=== PATIENT | male | born 1990 | race Caucasian/White ===

== ENCOUNTER 2024-02-22 17:18 | Emergency (ER) | payer OTHER ==
[2024-02-22 17:29] VITALS: RESP 20
[2024-02-22] MEDS: KETOROLAC 15 MG/ML 1 ML VIAL IM STA (18:28)
--- NOTE | 2024-02-22 19:00 | XR ---
EXAMINATION TYPE: XR shoulder complete RT DATE OF EXAM: 02/22/2024 COMPARISON: NONE HISTORY: Pain TECHNIQUE: Right Shoulder examined in 3 projections. FINDINGS: The humeral head articulates with the glenoid. The acromio-clavicular junction is hypertrophied with inferior and superior spurring. No acute fractures or dislocations are evident. A follow up study can be performed 7-10 days from acute trauma for continued pain. MRI can be perfor med if soft tissue evaluation would be of benefit. IMPRESSION: 1. No acute osseous shoulder abnormality. 2. Degenerative hypertrophy at the acromioclavicular junction.
--- NOTE | 2024-02-22 19:08 | XR ---
EXAMINATION TYPE: XR clavicle RT DATE OF EXAM: 02/22/2024 COMPARISON: Right shoulder images HISTORY: Pain, injury TECHNIQUE: 2 view right clavicle FINDINGS: On the 15 degree in the clavicle tiny avulsion at the acromion is identified. Additional fr actures however are not identified. The acromioclavicular spacing appears preserved. Clinical conside ration for separation should be considered. No additional fractures evident. The clavicle appears intact. IMPRESSION: 1. Tiny avulsion from the superior portion of the acromion adjacent to the acromioclavicular junctio n is present.
[2024-02-22] MEDS: HYDROcodone/APAP 7.5-325MG 1 EACH TAB PO ONE (19:58)
--- NOTE | 2024-02-22 20:05 | ED ---
General Adult HPI - General Chief complaint: Extremity Injury, Upper Stated complaint: R shoulder injury Time Seen by Provider: 02/22/24 17:35 Source: patient Mode of arrival: ambulatory Limitations: no limitations - History of Present Illness Initial comments: 33-year-old male with chief complaint of right shoulder pain. Patient was playing beach volleyball when he went for a dive and landed on the right shoulder. He is having pain mainly to the superior portion. Very limited range of motion secondary to pain. No numbness or tingling. Does have history of previous fracture of the clavicle. - Related Data Previous Rx's Medication Instructions Recorded Ibuprofen [Motrin] 600 mg PO Q6HR PRN #30 tab 02/22/24 Allergies Allergy/AdvReac Type Severity Reaction Status Date / Time nitroglycerin AdvReac Unknown Verified 02/22/24 17:30 Review of Systems ROS Statement: Those systems with pertinent positive or pertinent negative responses have been documented in the HPI. ROS Other: All systems not noted in ROS Statement are negative. Past Medical History Past Medical History: Hypertension Additional Past Medical History / Comment(s): pancreatitis Past Surgical History: Appendectomy, Hernia Repair Smoking Status: Current every day smoker Past Alcohol Use History: Abuse General Exam Limitations: no limitations General appearance: alert, in no apparent distress Head exam: Present: atraumatic, normocephalic, normal inspection Eye exam: Present: normal appearance, EOMI Neck exam: Present: normal inspection. Absent: meningismus Respiratory exam: Absent: respiratory distress Cardiovascular Exam: Present: regular rate Right Shoulder Exam: Present: normal inspection, tenderness. Absent: full ROM, deformity Vascular: Absent: vascular compromise Neurological exam: Present: alert, oriented X3 Psychiatric exam: Present: normal affect, normal mood Skin exam: Present: warm, dry Course Vital Signs 02/22/24 02/22/24 17:27 20:30 Temperature 97.6 F 97.9 F Pulse Rate 100 98 Respiratory 20 20 Rate Blood Pressure 137/99 130/91 O2 Sat by Pulse 97 98 Oximetry Medical Decision Making - Medical Decision Making Was pt. sent in by a medical professional or institution (, PA, CONSTRUCTION MATERIALS TESTER, urgent care, hospital, or assisted...) When possible be specific @ -No Did you speak to anyone other than the patient for history (EMS, parent, family, police, friend...)? What history was obtained from this source @ -No Did you review nursing and triage notes (agree or disagree)? Why? @ -I reviewed and agree with nursing and triage notes Were old charts reviewed (outside hosp., previous admission, EMS record, old EKG, old radiological studies, urgent care reports/EKG's, assisted records)? Report findings @ -No old charts were reviewed Differential Diagnosis (chest pain, altered mental status, abdominal pain women, abdominal pain men, vaginal bleeding, weakness, fever, dyspnea, syncope, headache, dizziness, GI bleed, back pain, seizure, CVA, palpatations, mental health, musculoskeletal)? @ -Differential Musculoskeletal Muscular strain, contusion, ligament sprain, fracture, arthritis, septic arthritis, bursitis, cellulitis, muscle spasm, nerve compression, DVT, arterial occlusion, herpes zoster, electrolyte abnormality, tumor.... This is not meant to be in all inclusive list EKG interpreted by me (3pts min.). @ -As above X-rays interpreted by me (1pt min.). @ -Shoulder x-ray shows no acute osseous shoulder abnormality. Degenerative hypertrophy at the AC junction Clavicle x-ray shows tiny avulsion from the superior portion of the acromion adjacent to the AC junction is present CT interpreted by me (1pt min.). @ -None done U/S interpreted by me (1pt. min.). @ -None done What testing was considered but not performed or refused? (CT, X-rays, U/S, labs)? Why? @ -None What meds were considered but not given or refused? Why? @ -None Did you discuss the management of the patient with other professionals (professionals i.e. , PA, CONSTRUCTION MATERIALS TESTER, lab, RT, psych nurse, oncology social worker, clinical quality assurance specialist, teacher, sheriffs officer, catalytic case operator)? Give summary @ -No Was smoking cessation discussed for >3mins.? @ -No Was critical care preformed (if so, how long)? @ -No Were there social determinants of health that impacted care today? How? (Homelessness, low income, unemployed, alcoholism, drug addiction, transportation, low edu. Level, literacy, decrease access to med. care, [facility], rehab)? @ -No Was there de-escalation of care discussed even if they declined (Discuss DNR or withdrawal of care, Hospice)? DNR status @ -No What co-morbidities impacted this encounter? (DM, HTN, Smoking, COPD, CAD, Cancer, CVA, ARF, Chemo, Hep., AIDS, mental health diagnosis, sleep apnea, morbid obesity)? @ -None Was patient admitted / discharged? Hospital course, mention meds given and route, prescriptions, significant lab abnormalities, going to OR and other pertinent info. @ -33-year-old male presenting with chief complaint of right shoulder pain after an injury today. Neurovascularly intact. X-ray shows tiny avulsion fracture of the acromion. Patient is educated on today's findings. He is provided with a shoulder sling. He was given Toradol and [place] for pain. Initially he was ordered a Tylenol 3 starter pack, however I was not made aware that the patient is from [place]. Prescription for ibuprofen sent to the pharmacy. Discharged home. Follow-up with PCP. Report back to ER with any new or worsening symptoms. Discussed return parameters and answered all questions. Patient conveyed verbal understanding and agreed to the plan. I discussed this case in detail with my attending Dr. Marks Undiagnosed new problem with uncertain prognosis? @ -No Drug Therapy requiring intensive monitoring for toxicity (Heparin, Nitro, Insulin, Cardizem)? @ -No Were any procedures done? @ -No Diagnosis/symptom? @ -Avulsion fracture of the acromion Acute, or Chronic, or Acute on Chronic? @ -Acute Uncomplicated (without systemic symptoms) or Complicated (systemic symptoms)? @ -Uncomplicated Side effects of treatment? @ -No Exacerbation, Progression, or Severe Exacerbation? @ -No Poses a threat to life or bodily function? How? (Chest pain, USA, MS, pneumonia, PE, COPD, DKA, ARF, appy, cholecystitis, CVA, Diverticulitis, Homicidal, Suicidal, threat to staff... and all critical care pts) @ -No Disposition Clinical Impression: Fracture of acromion of scapula Disposition: HOME SELF-CARE Condition: Good Instructions (If sedation given, give patient instructions): Clavicle Fracture (ED) Additional Instructions: Follow-up with PCP. Report back to ER with any new or worsening symptoms. Take Motrin and Tylenol as needed for pain control. Keep arm in sling until you follow-up with your orthopedist to advise you further Prescriptions: Ibuprofen [Motrin] 600 mg PO Q6HR PRN #30 tab PRN Reason: Pain Is patient prescribed a controlled substance at d/c from ED?: No Referrals: Nonstaff,Physician [Primary Care Provider] - 1-2 days Lauri Reese DO [Doctor of Osteopathic Medicine] - 1-2 days Time of Disposition: 20:04
[2024-02-22] MEDS: ACET/COD 300 MG/30 MG STARTER PACK 6 TAB BTL PO STA (20:11)
[2024-02-22 20:32] VITALS: BP 130/91; PULSE 98; TEMP 97.9
== END 2024-02-22 20:30 | disposition home or self-care (01) ==
LOC: EC 17:18
DX: S42.121A Displaced fracture of acromial process, right shoulder, initial encounter for closed fracture (principal)
CPT/HCPCS: 73000; 73030; 99283; L3670; J1885

== ENCOUNTER 2024-07-08 23:19 | Emergency (ER) | payer OTHER ==
[2024-07-08 23:37] VITALS: TEMP 98
--- NOTE | 2024-07-08 23:58 | ED ---
General Adult HPI - General Chief complaint: Chest Pain Stated complaint: Chest Pain Time Seen by Provider: 07/08/24 23:22 Source: patient Mode of arrival: EMS Limitations: no limitations - History of Present Illness Initial comments: Patient is a 33-year-old man here from [facility] with multiple complaints. Main complaint is that his blood pressure has been elevated all day. The patient had gone to check and at [facility] and had left his blood pressure medicine at home. 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 His blood pressure there has been elevated and tonight when it was higher despite taking 2 doses of clonidine, he was transferred here to have further evaluation. Patient relates that he had been at [facility] from Thursday through Thursday for pancreatitis, alcohol withdrawal, and acute kidney failure. Patient states that while he was there his blood pressure was not elevated, but he was taking medications. Onset/Timin -: days(s) Consistency: constant Improves with: none Worsens with: none Associated Symptoms: other (Back pain) Treatments Prior to Arrival: none - Related Data Previous Rx's Medication Instructions Recorded Ibuprofen [Motrin] 600 mg PO Q6HR PRN #30 tab 02/22/24 hydroCHLOROthiazide 25 mg PO DAILY #30 tab 07/09/24 Allergies Allergy/AdvReac Type Severity Reaction Status Date / Time nitroglycerin AdvReac Unknown Verified 07/08/24 23:37 Review of Systems ROS Statement: Those systems with pertinent positive or pertinent negative responses have been documented in the HPI. ROS Other: All systems not noted in ROS Statement are negative. Constitutional: Denies: fever, chills Eyes: Denies: vision change Respiratory: Denies: cough, dyspnea Cardiovascular: Reports: chest pain, edema. Denies: palpitations, dyspnea on exertion, orthopnea, syncope Gastrointestinal: Reports: abdominal pain. Denies: nausea, vomiting, diarrhea, constipation, melena, hematochezia Genitourinary: Denies: dysuria, hematuria Musculoskeletal: Reports: back pain Skin: Denies: rash Neurological: Denies: headache, weakness Psychiatric: Reports: anxiety Past Medical History Past Medical History: Hypertension Additional Past Medical History / Comment(s): pancreatitis History of Any Multi-Drug Resistant Organisms: None Reported Past Surgical History: Appendectomy, Hernia Repair Past Psychological History: Anxiety, Depression Smoking Status: Current every day smoker Past Alcohol Use History: Abuse Past Drug Use History: Marijuana General Exam Limitations: no limitations General appearance: alert, in no apparent distress Head exam: Present: atraumatic, normocephalic Eye exam: Present: normal appearance, PERRL, EOMI. Absent: scleral icterus, conjunctival injection ENT exam: Present: normal oropharynx Neck exam: Present: normal inspection Respiratory exam: Present: normal lung sounds bilaterally. Absent: respiratory distress, wheezes, rales, rhonchi, stridor, accessory muscle use Cardiovascular Exam: Present: regular rate, normal rhythm, normal heart sounds. Absent: systolic murmur, diastolic murmur, rubs, gallop GI/Abdominal exam: Present: soft. Absent: distended, tenderness, guarding, rebound, rigid, mass Extremities exam: Present: normal inspection, normal capillary refill, pedal edema (Mild edema at the ankles bilaterally). Absent: calf tenderness Back exam: Present: normal inspection. Absent: CVA tenderness (R), CVA tenderness (L) Neurological exam: Present: alert Skin exam: Present: warm, dry, intact, normal color. Absent: rash Course Vital Signs 07/08/24 07/09/24 07/09/24 23:20 03:33 06:45 Temperature 98 F Pulse Rate 80 81 81 Respiratory 18 16 16 Rate Blood Pressure 134/101 128/92 169/92 O2 Sat by Pulse 99 98 99 Oximetry EKG Findings - EKG Comments: EKG Findings:: Possible old septal infarct based on Q waves V1 V2 - EKG Results: EKG: interpreted by ARI, sinus rhythm (Rate 81 bpm), normal axis, normal ST/T Medical Decision Making - Medical Decision Making The patient had chest x-ray that I interpreted as negative for acute infiltrate, pneumothorax, congestive heart failure Was pt. sent in by a medical professional or institution (, PA, RAIL SIGNAL MECHANIC, urgent care, hospital, or detention...) When possible be specific @ -[The patient is sent for further evaluation from [facility] rehabilitation Did you speak to anyone other than the patient for history (EMS, parent, family, police, friend...)? What history was obtained from this source @ -[No] Did you review nursing and triage notes (agree or disagree)? Why? @ -[I reviewed and agree with nursing and triage notes] Were old charts reviewed (outside hosp., previous admission, EMS record, old EKG, old radiological studies, urgent care reports/EKG's, detention records)? Report findings @ -[No old charts were reviewed] Differential Diagnosis (chest pain, altered mental status, abdominal pain women, abdominal pain men, vaginal bleeding, weakness, fever, dyspnea, syncope, headache, dizziness, GI bleed, back pain, seizure, CVA, palpatations, mental health, musculoskeletal)? @ -[Amphetamine Toxicity Anxiety Disorders Apnea, Sleep Cocaine-Related Cardiomyopathy Heart Failure Hyperthyroidism, Thyroid Storm, and Graves Disease Hypertrophic Cardiomyopathy Myocardial Infarction Phencyclidine Toxicity Primary Aldosteronism Stroke, Hemorrhagic Stroke, Ischemic EKG interpreted by me (3pts min.). @ -[As above] X-rays interpreted by me (1pt min.). @ -[I interpreted as above CT interpreted by me (1pt min.). @ -[None done] U/S interpreted by me (1pt. min.). @ -[None done] What testing was considered but not performed or refused? (CT, X-rays, U/S, labs)? Why? @ -[None] What meds were considered but not given or refused? Why? @ -[None] Did you discuss the management of the patient with other professionals (professionals i.e. , PA, RAIL SIGNAL MECHANIC, lab, RT, psych nurse, social scientist, human resource manager, teacher, program officer, case management rn)? Give summary @ -[No] Was smoking cessation discussed for >3mins.? @ -[No] Was critical care preformed (if so, how long)? @ -[No] Were there social determinants of health that impacted care today? How? (Homelessness, low income, unemployed, alcoholism, drug addiction, transportation, low edu. Level, literacy, decrease access to med. care, group home, rehab)? @ -[No] Was there de-escalation of care discussed even if they declined (Discuss DNR or withdrawal of care, Hospice)? DNR status @ -[No] What co-morbidities impacted this encounter? (DM, HTN, Smoking, COPD, CAD, Cancer, CVA, ARF, Chemo, Hep., AIDS, mental health diagnosis, sleep apnea, morbid obesity)? @ -[None] Was patient admitted / discharged? Hospital course, mention meds given and route, prescriptions, significant lab abnormalities, going to OR and other pertinent info. @ -[Patient is 33-year-old man here to have evaluation for hypertension. The patient being admitted for alcohol rehabilitation to [facility]. The patient also undergoing workup related to pancreatitis. Today's evaluation does reveal possibility of mass related the pancreas. In discussion with patient he is aware of this finding and knows that it requires further follow-up. The patient fairly certain that he did have more detailed evaluation at the other facility and just has not received results yet. Undiagnosed new problem with uncertain prognosis? @ -[Pancreatic finding from CT scan Drug Therapy requiring intensive monitoring for toxicity (Heparin, Nitro, Insulin, Cardizem)? @ -[No] Were any procedures done? @ -[No] Diagnosis/symptom? @ -[Acute hypertension Pancreatitis Alcohol withdrawal Acute, or Chronic, or Acute on Chronic? @ -[Acute Uncomplicated (without systemic symptoms) or Complicated (systemic symptoms)? @ -[Uncomplicated Side effects of treatment? @ -[No] Exacerbation, Progression, or Severe Exacerbation? @ -[No] Poses a threat to life or bodily function? How? (Chest pain, USA, ND, pneumonia, PE, COPD, DKA, ARF, appy, cholecystitis, CVA, Diverticulitis, Homicidal, Suicidal, threat to staff... and all critical care pts) @ -[Pancreas finding requires further workup All treatments are based on ideal body weight as in ED triage - Lab Data Result diagrams: 07/09/24 00:05 07/09/24 00:05 Lab Results 07/09/24 07/09/24 07/09/24 Range/Units 00:05 00:05 00:05 WBC 6.1 (3.8-10.6) k/uL RBC 3.19 L (4.30-5.90) m/uL Hgb 10.8 L (13.0-17.5) gm/dL Hct 32.4 L (39.0-53.0) % MCV 101.6 H (80.0-100.0) fL MCH 34.1 (25.0-35.0) pg MCHC 33.5 (31.0-37.0) g/dL RDW 13.5 (11.5-15.5) % Plt Count 368 (150-450) k/uL MPV 7.4 Neutrophils % 62 % Lymphocytes % 29 % Monocytes % 7 % Eosinophils % 0 % Basophils % 0 % Neutrophils # 3.8 (1.3-7.7) k/uL Lymphocytes # 1.8 (1.0-4.8) k/uL Monocytes # 0.4 (0-1.0) k/uL Eosinophils # 0.0 (0-0.7) k/uL Basophils # 0.0 (0-0.2) k/uL Macrocytosis Slight PT (10.0-12.5) sec INR (<1.2) APTT (22.0-30.0) sec D-Dimer (<0.60) mg/L FEU Sodium 134 L (137-145) mmol/L Potassium 3.8 (3.5-5.1) mmol/L Chloride 102 (98-107) mmol/L Carbon Dioxide 24 (22-30) mmol/L Anion Gap 8 mmol/L BUN 13 (9-20) mg/dL Creatinine 0.93 (0.66-1.25) mg/dL Est GFR (CKD-EPI)AfAm >90 (>60 ml/min/1.73 sqM) Est GFR (CKD-EPI)NonAf >90 (>60 ml/min/1.73 sqM) Glucose 92 (74-99) mg/dL Calcium 9.0 (8.4-10.2) mg/dL Magnesium 1.2 L (1.6-2.3) mg/dL Total Bilirubin 0.6 (0.2-1.3) mg/dL AST 42 (17-59) U/L ALT 36 (4-49) U/L Alkaline Phosphatase 237 H (38-126) U/L Troponin I <0.012 (0.000-0.034) ng/mL Total Protein 6.6 (6.3-8.2) g/dL Albumin 3.5 (3.5-5.0) g/dL Amylase 153 H (30-110) U/L Lipase 1114 H (23-300) U/L Serum Alcohol <10 mg/dL 07/09/24 Range/Units 00:05 WBC (3.8-10.6) k/uL RBC (4.30-5.90) m/uL Hgb (13.0-17.5) gm/dL Hct (39.0-53.0) % MCV (80.0-100.0) fL MCH (25.0-35.0) pg MCHC (31.0-37.0) g/dL RDW (11.5-15.5) % Plt Count (150-450) k/uL MPV Neutrophils % % Lymphocytes % % Monocytes % % Eosinophils % % Basophils % % Neutrophils # (1.3-7.7) k/uL Lymphocytes # (1.0-4.8) k/uL Monocytes # (0-1.0) k/uL Eosinophils # (0-0.7) k/uL Basophils # (0-0.2) k/uL Macrocytosis PT 11.4 (10.0-12.5) sec INR 1.0 (<1.2) APTT 25.1 (22.0-30.0) sec D-Dimer 1.41 H (<0.60) mg/L FEU Sodium (137-145) mmol/L Potassium (3.5-5.1) mmol/L Chloride (98-107) mmol/L Carbon Dioxide (22-30) mmol/L Anion Gap mmol/L BUN (9-20) mg/dL Creatinine (0.66-1.25) mg/dL Est GFR (CKD-EPI)AfAm (>60 ml/min/1.73 sqM) Est GFR (CKD-EPI)NonAf (>60 ml/min/1.73 sqM) Glucose (74-99) mg/dL Calcium (8.4-10.2) mg/dL Magnesium (1.6-2.3) mg/dL Total Bilirubin (0.2-1.3) mg/dL AST (17-59) U/L ALT (4-49) U/L Alkaline Phosphatase (38-126) U/L Troponin I (0.000-0.034) ng/mL Total Protein (6.3-8.2) g/dL Albumin (3.5-5.0) g/dL Amylase (30-110) U/L Lipase (23-300) U/L Serum Alcohol mg/dL Disposition Clinical Impression: Pancreatitis, Hypertension Disposition: HOME SELF-CARE Condition: Fair Instructions (If sedation given, give patient instructions): Pancreatitis (ED), Hypertension (ED) Additional Instructions: As we discussed, there may be a mass involving the pancreas. Schedule MRI within the next 5 to 7 days to further evaluate the CT scan findings. Prescriptions: hydroCHLOROthiazide 25 mg PO DAILY #30 tab Is patient prescribed a controlled substance at d/c from ED?: No Referrals: None,Stated [Primary Care Provider] - 1-2 days
[2024-07-09] MEDS: IBUPROFEN 600 MG TAB PO STA (00:10)
[2024-07-09] MEDS: LORazepam 2 MG/ML INJ IV STA (00:11)
[2024-07-09 00:33] LABS: Basophils % (A) 0 %; Eosinophils % (A) 0 %; HCT 32.4 % (39.0-53.0); HGB 10.8 gm/dL (13.0-17.5); Lymphocytes # (A) 1.8 k/uL (1.0-4.8); Lymphocytes % (A) 29 %; MCH 34.1 pg (25.0-35.0); MCHC 33.5 g/dL (31.0-37.0); MCV 101.6 fL (80.0-100.0); Macrocytosis Slight; Mean Platelet Volume 7.4; Monocytes # (A) 0.4 k/uL (0-1.0); Monocytes % (A) 7 %; Neutrophils # (A) 3.8 k/uL (1.3-7.7); Neutrophils % (A) 62 %; Platelet Count 368 k/uL (150-450); RBC 3.19 m/uL (4.30-5.90); RDW 13.5 % (11.5-15.5); WBC 6.1 k/uL (3.8-10.6)
[2024-07-09 00:48] LABS: Partial Thromboplastin Time 25.1 sec (22.0-30.0); Prothrombin Time 11.4 sec (10.0-12.5)
[2024-07-09 00:52] LABS: ALT 36 U/L (4-49); AST 42 U/L (17-59); African American GFR (CKD) >90 (>60 ml/min/1.73 sqM); Albumin 3.5 g/dL (3.5-5.0); Alcohol <10 mg/dL; Alkaline Phosphatase 237 U/L (38-126); Amylase 153 U/L (30-110); Anion Gap 8 mmol/L; Blood Urea Nitrogen 13 mg/dL (9-20); Carbon Dioxide 24 mmol/L (22-30); Chloride 102 mmol/L (98-107); Glucose 92 mg/dL (74-99); Lipase 1114 U/L (23-300); Magnesium 1.2 mg/dL (1.6-2.3); Non-African American GFR(CKD) >90 (>60 ml/min/1.73 sqM); Potassium 3.8 mmol/L (3.5-5.1); Sodium 134 mmol/L (137-145); Total Bilirubin 0.6 mg/dL (0.2-1.3); Total Protein 6.6 g/dL (6.3-8.2)
[2024-07-09] MEDS: MAGNESIUM SULFATE-D5W PMX 1 GM in DEXTROSE/WATER 1 100ML.BAG IVPB ONE (01:28)
--- NOTE | 2024-07-09 02:56 | XR ---
EXAM: XR Chest, 2 Views CLINICAL HISTORY: ITS.REASON XR Reason: Chest Pain TECHNIQUE: Frontal and lateral views of the chest. COMPARISON: No relevant prior studies available. IMPRESSION: 1. No acute cardiopulmonary abnormality.
[2024-07-09] MEDS: NICOTINE 14MG/24HR PATCH TRANSDERM STA (03:32)
[2024-07-09 03:34] VITALS: PULSE 81; RESP 16
--- NOTE | 2024-07-09 03:52 | CT ---
EXAM: CT Angiography Chest With Intravenous Contrast CLINICAL HISTORY: ITS.REASON CT Reason: chest pain, possible PE TECHNIQUE: Axial computed tomographic angiography images of the chest with intravenous contrast. CTDI is 25.1 mGy and DLP is 416.5 mGy-cm. This CT exam was performed using one or more of the following dose reduction techniques: automated exposure control, adjustment of the mA and/or kV according to patient size, and/or use of iterative reconstruction technique. With additional imaging of the abdomen was obtained to the level of the inferior poles of the kidneys. MIP reconstructed images were created and reviewed. COMPARISON: No relevant prior studies available. FINDINGS: Pulmonary arteries: No pulmonary embolism detected. Aorta: No acute findings. No thoracic aortic aneurysm. Lungs: Mild dependent atelectatic changes. No mass. No consolidation. Pleural space: Unremarkable. No significant effusion. No pneumothorax. Heart: Unremarkable. No cardiomegaly. No significant pericardial effusion. No evidence of RV dysfunction. Bones/joints: Degenerative changes in the spine. Age indeterminate T8 compression fracture. Consider correlation with point tenderness. If there is further concern, consider MRI. No dislocation. Soft tissues: Gynecomastia. Lymph nodes: Unremarkable. No enlarged lymph nodes. Liver: Mildly nodular contour of the liver. Findings may be due to cirrhotic morphology. Pancreas: Partially visualized mass noted at the head of the pancreas with invasion into the duodenum with surrounding adjacent inflammatory change. Recommend dedicated imaging of the abdomen and pelvis. Findings may relate to neoplasm. Spleen: The spleen is unremarkable. Adrenals: Unremarkable to the adrenal glands. The visualized kidneys are unremarkable. Other findings: IMPRESSION: 1. Partially visualized mass noted at the head of the pancreas with invasion into the duodenum with surrounding adjacent inflammatory change. Recommend dedicated imaging of the abdomen and pelvis. Findings may relate to neoplasm. 2. No pulmonary embolism detected. <MYCVCSECTION> Communications: 07/09/24 04:01 Verify Receipt Verified receipt with NOE Marvin , given to DR Omalley on 07/09 04:01 (-05:00)
[2024-07-09 06:46] VITALS: BP 169/92
== END 2024-07-09 07:28 | disposition home or self-care (01) ==
LOC: EC 23:19
DX: K85.90 Acute pancreatitis without necrosis or infection, unspecified (principal); I10 Essential (primary) hypertension; F17.200 Nicotine dependence, unspecified, uncomplicated; Z88.8 Allergy status to other drugs, medicaments and biological substances; Z79.899 Other long term (current) drug therapy
CPT/HCPCS: 36415; 93005; 85379; 80053; 82150; 83690; 83735; 84484; 85025; 85610; 85730; 71046; 71275; 99285; 96365; 96375; G0480; S4990; J2060; J3475; Q9967; 80320